=== PATIENT | male | born 1960 | race Caucasian/White ===

== ENCOUNTER → 2020-10-27 | Outpatient (CLI) | payer OTHER | LOC: M LABSMTC 11:31 | PROVIDERS: ATTEND Anesthesiology | DX: Z01.818 Encounter for other preprocedural examination (principal); Z11.52 Encounter for screening for COVID-19 ==

== ENCOUNTER 2020-11-01 08:48 | Day surgery (SDC) | payer BC, OTHER ==
[~2020-11-01] VITALS: Ht 182.9 cm; Wt 104.9 kg
[~2020-11-01 08:48] MED LIST: FLURBIPROFEN 0.03% OPHTH SOLN 2.5 ML OS SCH; LIDOCAINE 1% SDV 5ML VIAL As Ordered ONE; LR 1,000 ML IV SCH
[2020-11-01] MEDS ORDERED: MIDAZOLAM INJ 2MG/2ML VIAL (J2250 PER 1MG) As Ordered ONE (12:18)
[2020-11-01] MEDS ORDERED: fentaNYL 100 MCG/2 ML INJECTION (J3010) As Ordered ONE (12:21)
[2020-11-01] MEDS: TETRACAINE 0.5% OPHTH SOLN 4ML OS SCH ×2 (13:20→13:25)
[2020-11-01] MEDS: PHENYLEPHRINE 2.5% OPHTH SOL 2ML OS SCH ×3 (13:27→13:57)
[2020-11-01] MEDS: KETOROLAC 0.5% OPHTH SOLN OS SCH ×3 (13:27→13:57)
[2020-11-01] MEDS: CYCLOPENTOLATE 1% OPHTH SOLN 2 ML BTL OS SCH ×3 (13:27→13:57)
[2020-11-01] MEDS ORDERED: DUOVISC (0.50ML VISCOAT/0.85ML PROVISC) OPHTH KIT As Ordered ONE (13:54)
[2020-11-01] MEDS ORDERED: TRYPAN BLUE 0.06 % 2.25 ML OPHTH SYR (VISIONBLUE) As Ordered ONE (13:54)
[2020-11-01 15:00] VITALS: BP 117/72
== END 2020-11-01 15:02 | disposition home or self-care (01) ==
LOC: M SDC 08:48
PROVIDERS: ATTEND Ophthalmology
DX: H25.12 Age-related nuclear cataract, left eye (principal); F17.218 Nicotine dependence, cigarettes, with other nicotine-induced disorders
CPT/HCPCS: 66984; J2250; J3010